=== PATIENT | female | born 1975 | race Caucasian/White ===

== ENCOUNTER 2017-11-25 01:31 | Emergency (ER) | payer MEDICAID ==
[~2017-11-25] VITALS: Ht 157.5 cm; Wt 72.6 kg
[2017-11-25] MEDS ORDERED: ULTRAM 50MG TAB50 MG PO (01:35)
[2017-11-25] MEDS ORDERED: PREDNISONE 20 M20 M1 PO (01:47)
[2017-11-25 02:10] VITALS: BP 129/82
== END 2017-11-25 02:10 | disposition home or self-care (01) ==
LOC: M.ERS 01:31
DX: M25.532 Pain in left wrist (principal)

== ENCOUNTER 2017-12-06 19:09 | Emergency (ER) | payer MEDICAID ==
[~2017-12-06] VITALS: Ht 157.5 cm; Wt 72.6 kg
[~2017-12-06 19:09] MED LIST: PREDNISONE 20 M20 M1 PO; ULTRAM 50MG TAB50 MG PO
[2017-12-06 19:53] LABS: HEMATOCRIT 39.4 % (37.0-47.0); HEMOGLOBIN 13.3 gm/dL (12.0-15.0); MCH 29.5 pg (26.0-34.0); MCHC 33.9 g/dL (28.0-37.0); MCV 87.2 fL (80.0-100.0); MPV 8.2 fl. (7.2-11.1); RBC 4.51 mil/uL (4.20-5.00); RDW-CV 13.6 % (10.5-14.5); WBC 7.1 thou/uL (4.0-11.0)
[2017-12-06 20:08] LABS: CALCIUM 8.7 mg/dL (8.5-10.1); CREATININE 0.7 mg/dL (0.6-1.3); POTASSIUM 4.2 mmol/L (3.5-5.1)
[2017-12-06 20:10] LABS: URINE BILIRUBIN NEGATIVE (Negative); URINE BLOOD NEGATIVE (Negative); URINE CLARITY CLEAR; URINE COLOR YELLOW; URINE GLUCOSE-RANDOM NEGATIVE (Negative); URINE KETONES TRACE (Negative); URINE LEUKOCYTES NEGATIVE (Negative); URINE NITRITE NEGATIVE (Negative); URINE PROTEIN NEGATIVE (Negative); URINE SPECIFIC GRAVITY >= 1.030 (1.005-1.030); URINE UROBILINOGEN 0.2 E.U./dl (0.2-1.0)
[2017-12-06 20:13] LABS: ALBUMIN 3.5 g/dL (3.4-5.0); ALCOHOL < 10 mg/dL (<10); SALICYLATE < 2.8 mg/dL (2.8-20.0); TOTAL BILIRUBIN 0.5 mg/dL (<0.1-1.0); TOTAL PROTEIN 6.6 g/dL (6.4-8.2)
[2017-12-06 20:16] LABS: AMP/METHAMP Negative (Negative); BARBITURATES Negative (Negative); BENZODIAZEPINES Negative (Negative); COCAINE Negative (Negative); METHADONE Negative (Negative); OPIATES Negative (Negative); PCP Negative (Negative); THC Negative (Negative)
[2017-12-06 20:16] LABS: ACETAMINOPHEN < 2 ug/mL (10-30)
[2017-12-07] MEDS ORDERED: AMITRIPTYLINE H75 M1 PO (01:16)
[2017-12-07] MEDS ORDERED: ZOLOFT100 MG PO (01:16)
[2017-12-07 01:20] VITALS: BP 109/60
== END 2017-12-07 01:20 | disposition home or self-care (01) ==
LOC: M.ERS 19:09
PROVIDERS: Personal Emergency Response Attendant
DX: F32.9 Major depressive disorder, single episode, unspecified (principal)

== ENCOUNTER → 2018-03-26 | Outpatient (CLI) | payer OTHER ==
[~2018-03-26] MED LIST changes: +AMITRIPTYLINE H75 M1 PO; +ZOLOFT100 MG PO
== END ==
LOC: M.RAD 13:47
DX: N63.10 Unspecified lump in the right breast, unspecified quadrant (principal); R92.8 Other abnormal and inconclusive findings on diagnostic imaging of breast; Z98.82 Breast implant status

== ENCOUNTER 2019-06-07 18:45 | Emergency (ER) | payer BC ==
[~2019-06-07] VITALS: Ht 157.5 cm; Wt 77.1 kg
[2019-06-07] MEDS ORDERED: ZANAFLEX4 MG PO (21:36)
[2019-06-07] MEDS ORDERED: NORCO 5-325 TA1 EAC1 PO (21:36)
[2019-06-07] MEDS ORDERED: NABUMETONE 750750 M1 PO (21:36)
[2019-06-07 21:50] VITALS: BP 110/82
== END 2019-06-07 21:50 | disposition home or self-care (01) ==
LOC: M.ERS 18:45
DX: S39.012A Strain of muscle, fascia and tendon of lower back, initial encounter (principal); F32.9 Major depressive disorder, single episode, unspecified; W10.8XXA Fall (on) (from) other stairs and steps, initial encounter; Y93.89 Activity, other specified; Y92.89 Other specified places as the place of occurrence of the external cause; Y99.8 Other external cause status

== ENCOUNTER → 2019-06-20 | Outpatient (CLI) | payer BC ==
[~2019-06-20] MED LIST changes: +NABUMETONE 750750 M1 PO; +NORCO 5-325 TA1 EAC1 PO; +ZANAFLEX4 MG PO
== END ==
LOC: M.RAD 08:46
DX: M79.672 Pain in left foot (principal)